=== PATIENT | female | born 1955 | race Caucasian/White ===

== ENCOUNTER 2021-07-21 13:23 | Emergency (ER) | payer SELFPAY ==
[2021-07-21 13:52] VITALS: BP 171/63; PULSE 65; TEMP 98.9; BMI 18.1
[2021-07-21] MEDS ORDERED: ACETAMINOPHEN 500 MG TABLET (FP) PO ONE (14:23)
[2021-07-21] MEDS ORDERED: ACETAMINOPHEN 500 MG TABLET (FP) ONE (14:28)
== END 2021-07-21 15:52 | disposition home or self-care (01) ==
LOC: FER 13:23
DX: R07.81 Pleurodynia (principal)
CPT/HCPCS: 71046-TC-FY; 99283-25